=== PATIENT | female | born 1985 | race Caucasian/White ===

== ENCOUNTER 2017-08-14 15:54 | Emergency (ER) | payer MEDICAID ==
[~2017-08-14] VITALS: Ht 175.3 cm; Wt 89.0 kg
[~2017-08-14 15:54] MED LIST: DEXT15TA PO; PERC5TAB12 PO; XANA1TAB6 PO; ZOFR4TAB3 SL
[2017-08-14 16:01] VITALS: BP 154/83; PULSE 92; RESP 16; TEMP 98; O2SAT 98
--- NOTE | 2017-08-14 16:42 | PD ---
HPI Chief Complaint: Musculoskeletal Complaint Time Seen by Provider: 16:39 Travel History International Travel<30 days: No Contact w/Intl Traveler<30days: No Traveled to known affect area: No History of Present Illness HPI This patient complains of pain in her right thumb. Yesterday she jammed it on the door. She is worried about a fracture. Pain is worse with movement. Severity is moderate. 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) Allergies-Medications (Allergen,Severity, Reaction): Coded Allergies: No Known Allergies (Verified Adverse Reaction, Unknown, 08/14/17) Reported Meds & Prescriptions Reported Meds & Active Scripts Active Zofran ODT (Ondansetron HCl) 4 Mg Tab 4 Mg SL Q6H PRN FOR NAUSEA/VOMITING Percocet 5-325 mg (Oxycodone/Acetaminophen) 1 Tab 1 Tab PO Q4H PRN Reported Xanax 1 mg (Alprazolam) Alprazolam 1 mg Tab 1 Tab PO Q8HR Adderall 15 mg (Amphetamine/Dextroamphetamine) 15 Mg Tab 15 Mg PO DAILY Review of Systems General / Constitutional: No: Fever HENT: No: Headaches Cardiovascular: No: Chest Pain or Discomfort Respiratory: No: Cough Physical Exam Narrative SKIN: Focused skin assessment reveals no rash or ulcers. Skin is warm and dry. Palpation shows no induration or nodules. Psych: Normal mood and affect. Normal insight and judgment. Right thumb: There is some tenderness at the MCP joint and proximal shaft. No open wound or bruising. Data Data Last Documented VS Vital Signs Date Time Temp Pulse Resp B/P (MAP) Pulse Ox O2 Delivery O2 Flow Rate FiO2 08/14/17 16:01 98.0 92 16 154/83 (106) 98 Orders Orders Finger ([id number]) (08/14/17 ) [facility] Medical Decision Making Medical Screen Exam Complete: Yes Emergency Medical Condition: Yes Medical Record Reviewed: Yes Differential Diagnosis Fracture, contusion, soft tissue strain Narrative Course I have reviewed the patient's electronic medical record. I reviewed her right thumb x-rays which are normal We discussed immobilization which would require thumb spica splint. She does not want that. She will ice and elevate and rest and follow-up with her physician Diagnosis Primary Impression: Soft tissue injury of right hand Qualified Codes: S69.91XA - Unspecified injury of right wrist, hand and finger (s), initial encounter Additional Instructions: The patient was advised to follow up with their physician and return if they worsen. Ice and elevate right thumb Med/Other Pt SpecificInfo: Other Disposition: 01 DISCHARGE HOME Condition: Stable Pancho Haq MD Aug 14, 2017 16:42
--- NOTE | 2017-08-14 17:19 | RADRPT ---
EXAM DATE/TIME: 08/14/2017 16:52 [place] COMPARISON: No previous studies available for comparison. INDICATIONS : Right thumb bent back yesterday, has pain, limited ROM MEDICAL HISTORY : None. SURGICAL HISTORY : None. ENCOUNTER: Initial ACUITY: 1 day PAIN SCORE: 6/10 LOCATION: Right thumb FINDINGS: No definite fractures, or dislocations are identified. No definite lytic or sclerotic lesion is seen . CONCLUSION: Unremarkable study. Annetta Lama MD on August 14, 2017 at 17:16 Board Certified Radiologist. This report was verified electronically.
== END 2017-08-14 17:47 | disposition home or self-care (01) ==
LOC: PHEFT 15:54
DX: S69.91XA Unspecified injury of right wrist, hand and finger(s), initial encounter (principal); F90.9 Attention-deficit hyperactivity disorder, unspecified type; F32.9 Major depressive disorder, single episode, unspecified; W22.09XA Striking against other stationary object, initial encounter
CPT/HCPCS: 73140; 99283

== ENCOUNTER 2017-09-17 11:05 | Emergency (ER) | payer MEDICAID ==
[~2017-09-17] VITALS: Ht 175.3 cm; Wt 86.9 kg
[2017-09-17 11:21] VITALS: BP 162/101; PULSE 83; RESP 16; TEMP 98.5; O2SAT 98
--- NOTE | 2017-09-17 11:34 | PD ---
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 The patient notes a thick white vaginal discharge without any itching. The patient denies any dysuria, frequency, or urgency. Last menstrual cycle was approximately one and a half weeks ago. The patient is a Ab1, who does have a previous history of yeast infection. The patient denies any nausea, vomiting, diarrhea, or upper abdominal pain. Symptoms are moderate, there are no current alleviating or exacerbating factors. 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) Allergies-Medications (Allergen,Severity, Reaction): Coded Allergies: No Known Allergies (Verified Adverse Reaction, Unknown, 09/17/17) Reported Meds & Prescriptions Reported Meds & Active Scripts Active Reported [ control ] Cymbalta DR (Duloxetine HCl) 30 Mg Capdr 30 Mg PO DAILY Review of Systems Except as stated in HPI: all other systems reviewed are Neg General / Constitutional: No: Fever Gastrointestinal: No: Nausea, Vomiting, Diarrhea, Abdominal Pain Genitourinary: Positive: Pelvic Pain, Discharge, No: Urgency, Frequency, Dysuria, Vaginal Bleeding Skin: No Rash, No Itching Physical Exam Narrative GENERAL: Awake, alert, pleasant 32-year-old female who appears her stated age and is in no acute respiratory distress. SKIN: Focused skin assessment warm/dry. HEAD: Atraumatic. Normocephalic. EYES: No injection or drainage. GASTROINTESTINAL: Abdomen soft, non-tender, nondistended. No guarding or rigidity. Back: No CVA tenderness Genitourinary: The exam was performed in the presence of a female nurse. External examination reveals no rashes or lesions. Speculum examination reveals white discharge in the vaginal vault. Cervix is closed. No cervical motion tenderness. Wet prep and gonorrhea/chlamydia PCR were sent to lab. MUSCULOSKELETAL: No obvious deformities. No clubbing. No cyanosis. No edema. NEUROLOGICAL: Awake and alert. No obvious cranial nerve deficits. Motor grossly within normal limits. Normal speech. PSYCHIATRIC: Appropriate mood and affect; insight and judgment normal. Data Data Last Documented VS Vital Signs Date Time Temp Pulse Resp B/P (MAP) Pulse Ox O2 Delivery O2 Flow Rate FiO2 09/17/17 11:56 75 16 145/97 (113) 98 Room Air 09/17/17 11:21 98.5 Orders Orders Gc And Chlamydia Pcr (09/17/17 11:29) Wet Prep Profile (09/17/17 11:29) Urinalysis - C+S If Indicated (09/17/17 11:29) Ed Urine Pregnancytest Poc (09/17/17 11:29) Labs Laboratory Tests Test 09/17/17 11:20 09/17/17 11:30 Urine pH 6.0 Urine Protein NEG mg/dL Urine Glucose (UA) NEG mg/dL Urine Ketones NEG mg/dL Urine Occult Blood NEG Urine Nitrite NEG Urine Bilirubin NEG Urine Leukocyte Esterase NEG Clue Cells (Wet Prep) PRESENT Vaginal Trichomonas (Wet Prep) NONE SEEN Vaginal Yeast (Wet Prep) NONE SEEN MDM Medical Decision Making Medical Screen Exam Complete: Yes Emergency Medical Condition: Yes Medical Record Reviewed: Yes Interpretation(s) Laboratory Tests Test 09/17/17 11:20 09/17/17 11:30 Urine pH 6.0 Urine Protein NEG mg/dL Urine Glucose (UA) NEG mg/dL Urine Ketones NEG mg/dL Urine Occult Blood NEG Urine Nitrite NEG Urine Bilirubin NEG Urine Leukocyte Esterase NEG Clue Cells (Wet Prep) PRESENT Vaginal Trichomonas (Wet Prep) NONE SEEN Vaginal Yeast (Wet Prep) NONE SEEN Differential Diagnosis Differential diagnosis includes PID, cervicitis, vaginitis, Trichomonas, bacterial vaginosis, , yeast infection, UTI. Narrative Course Bedside UA test was obtained, was negative. UA was sent to lab. A pelvic exam was performed in the presence of female nurse. Gonorrhea/chlamydia PCR was sent to lab and wet prep was sent to lab. Wet prep is positive for clue cells consistent with bacterial vaginosis. The patient will be treated with Flagyl twice a day for one week. She is advised to follow-up with a primary physician. Return if symptoms worsen or progress. Diagnosis Primary Impression: Bacterial vaginosis Patient Instructions: General Instructions Additional Instructions: Medications as directed. Please provide the patient a copy of her lab results at discharge. Return if symptoms worsen or progress. Follow-up with a primary physician. Med/Other Pt SpecificInfo: Prescription(s) given Scripts Metronidazole (Flagyl) 500 Mg Tab 500 MG PO BID for Infection for 7 Days, #14 TAB 0 Refills Prov: Earle James MD 09/17/17 Disposition: DISCHARGE HOME Condition: Stable Earle James MD Sep 17, 2017 11:34
[2017-09-17] MEDS ORDERED: CYMB30CA PO (11:45)
[2017-09-17] MEDS ORDERED: birth control (11:45)
[2017-09-17 11:55] LABS: BILIRUBIN, URINE NEG (NEG); BLOOD, URINE NEG (NEG); GLUCOSE,URINE NEG (NEG); KETONE, URINE NEG (NEG); NITRITE,URINE NEG (NEG); URINE LEUKOCYTE ESTERASE NEG (NEG)
[2017-09-17 11:56] VITALS: BP 145/97; PULSE 75; RESP 16; O2SAT 98
[2017-09-17] MEDS ORDERED: METR-1 PO (12:16)
[2017-09-17 12:27] LABS: URINE COLOR YELLOW (YELLW/STRAW)
[2017-09-17 12:28] LABS: AMORPHOUS SEDIMENT, URINE LARGE; BACTERIA, URINE MOD /hpf; SQUAMOUS EPITHELIAL CELL URINE > 8 /hpf (0-5)
== END 2017-09-17 12:33 | disposition home or self-care (01) ==
LOC: PHED 11:05
DX: N76.0 Acute vaginitis (principal); B96.89 Other specified bacterial agents as the cause of diseases classified elsewhere; F90.9 Attention-deficit hyperactivity disorder, unspecified type; F41.9 Anxiety disorder, unspecified; F32.9 Major depressive disorder, single episode, unspecified; F17.200 Nicotine dependence, unspecified, uncomplicated; Z79.899 Other long term (current) drug therapy
CPT/HCPCS: 81001; 84703; 87086; 87210; 87491; 87591; 99283